=== PATIENT | female | born 2000 | race Caucasian/White ===

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

== ENCOUNTER 2020-03-30 18:16 | Emergency (ER) | payer MEDICAID, OTHER ==
[~2020-03-30] VITALS: Ht 177.8 cm; Wt 81.6 kg
[2020-03-30 21:00] VITALS: BP 123/81
[2020-03-30] MEDS ORDERED: KETOROLAC TROMETH 60MG/2ML VIAL IM ONE (21:15)
== END 2020-03-30 22:41 | disposition home or self-care (01) ==
LOC: ER 18:16
DX: S93.401A Sprain of unspecified ligament of right ankle, initial encounter (principal); S16.1XXA Strain of muscle, fascia and tendon at neck level, initial encounter; M54.5 Low back pain; J45.909 Unspecified asthma, uncomplicated; V43.62XA Car passenger injured in collision with other type car in traffic accident, initial encounter; Y93.89 Activity, other specified; Y92.488 Other paved roadways as the place of occurrence of the external cause; Y99.8 Other external cause status
CPT/HCPCS: 71250; 72125; 73590; 73600; 74176; 96372; 99285; J1885

== ENCOUNTER 2021-05-09 19:38 | Emergency (ER) | payer MEDICAID, OTHER ==
[~2021-05-09] VITALS: Ht 177.8 cm; Wt 70.3 kg
[2021-05-09] MEDS ORDERED: ASPirin 81 mg TAB PO ONE (20:30)
[2021-05-09 21:32] LABS: Basophils # (auto) 0.1 10 ^3/uL (0-0.2); Basophils % (auto) 1.1 % (0.0-2.0); Eosinophils # (auto) 0.1 10 ^3/uL (0-0.8); Eosinophils % (auto) 1.9 % (0.0-7.0); Hematocrit 41.1 % (36.0-46.0); Lymphocytes # (auto) 1.5 10 ^3/uL (0.4-5.4); Lymphocytes % (auto) 20.8 % (10.0-50.0); Mean Corpuscular Hemoglobin 29.1 pg (28.0-32.0); Mean Corpuscular Volume 85.5 fL (80.0-100.0); Monocytes # (auto) 0.4 10 ^3/uL (0-1.3); Monocytes % (auto) 6.3 % (0.0-12.0); Neutrophils # (auto) 4.9 10 ^3/uL (1.6-8.6); Neutrophils % (auto) 69.9 % (37.0-80.0); Nucleated Red Blood Cells % 0.1 %; Red Blood Cells 4.81 10^6/uL (4.0-5.20); Red Cell Distribution Width 13.6 % (11.8-14.3)
[2021-05-09 21:49] LABS: Albumin 3.6 g/dL (3.4-5.0); Anion Gap 6 (5-15); BUN/Creatinine Ratio 10.3; Blood Urea Nitrogen 7 mg/dL (7-18); Calcium 8.5 mg/dL (8.5-10.1); Carbon Dioxide 27 mmol/L (21-32); Chloride 106 mmol/L (98-107); GFR African American 139 mL/min; GFR Non-African American 115 mL/min; Glucose 96 mg/dL (74-106); Magnesium 2.3 mg/dL (1.6-2.6); Potassium 3.8 mmol/L (3.5-5.1); Sodium 139 mmol/L (136-145)
[2021-05-09 21:54] LABS: Alanine Aminotransferase 18 U/L (13-56); Alkaline Phosphatase 95 U/L (45-117); Aspartate Aminotransferase 9 U/L (15-37); Bilirubin, Total 0.3 mg/dL (0.2-1.0); Total Protein 7.5 g/dL (6.4-8.2)
[2021-05-09] MEDS ORDERED: KETOROLAC TROMETH 30 MG/ML 1ML VIAL IV ONE (22:45)
[2021-05-09 23:09] VITALS: BP 127/76
[2021-05-09] MEDS ORDERED: NAP500T PO (23:16)
== END 2021-05-09 23:37 | disposition home or self-care (01) ==
LOC: ER 19:41
DX: N64.4 Mastodynia (principal); M79.605 Pain in left leg; M25.512 Pain in left shoulder; J45.909 Unspecified asthma, uncomplicated; Z79.899 Other long term (current) drug therapy
CPT/HCPCS: 36415; 70450; 71045; 80053; 83735; 83880; 84484; 84702; 85025; 85379; 93005; 96374; 99285; J1885

== ENCOUNTER 2023-03-25 17:47 | Emergency (ER) | payer MEDICAID ==
[~2023-03-25] VITALS: Ht 177.8 cm; Wt 79.0 kg
[~2023-03-25 17:47] MED LIST changes: +NAP500T PO
[2023-03-25 18:19] VITALS: BP 118/83; PULSE 84; RESP 16; O2SAT 97
== END 2023-03-25 19:36 | disposition home or self-care (01) ==
LOC: ER 17:47
DX: M79.675 Pain in left toe(s) (principal); Z53.21 Procedure and treatment not carried out due to patient leaving prior to being seen by health care provider

== ENCOUNTER 2024-05-19 15:46 | Emergency (ER) | payer MEDICAID, OTHER ==
[~2024-05-19] VITALS: Ht 177.8 cm; Wt 84.0 kg
--- NOTE | 2024-05-19 16:30 | ED.PDOC ---
History of Present Illness HPI Comments 24 year old female presents to the ED with a chief complaint of syncope onset today. Patient states she was on break, sitting in her car, when she began seeing black spots and "blacked out" for a few seconds. She is currently experiencing headache, LLQ pain/cramping. She is 7 weeks with twins, saw OBGYN yesterday, due to vaginal spotting with cramping for a few weeks, had ultrasound done, was told she had a subchorionic hemorrhage. Patient noticed LLQ pain/cramping has worsened, vaginal spotting has improved. LMP 04/01/24. Chief Complaint: Syncope Time Seen by MD: 16:12 Primary Care Provider: JESSICA BANKS Reviewed Notes: Medications, Allergies Allergies: Coded Allergies: NO KNOWN ALLERGIES (Unverified , 07/30/12) Home Meds Active Scripts Naproxen (NAPROSYN TABLET) 500 Mg Tb, 1 TAB PO BID PRN for 10 Days, #20 TAB 1 Refill Prov:LUDMILA KEMP MD 05/09/21 Reported Medications Sulfamethoxazole-Trimethoprim (Bactrim) 1 Tab Tab 07/30/12 Albuterol Sulfate (Accuneb) 0.63MG/3 Neb 07/30/12 Information Source: Patient Mode of Arrival: Ambulatory Severity: Moderate Timing: Days Duration: Since onset Prehospital treatment: None Past Medical History PAST MEDICAL HISTORY: Asthma, Denies Surgical History: Denies all surgeries IRRADIATED FUEL HANDLER History: No Pertinent IRRADIATED FUEL HANDLER History Family History Family History: Reviewed,noncontributory to illness, Family hx of heart pio Social History Smoker: Non-Smoker Alcohol: Denies ETOH Use Drugs: Denies Drug Use Lives In: Home Constitutional: denies: chills, diaphoresis, fatigue, fever, malaise, sweats, weakness, others EENTM: denies: blurred vision, double vision, ear bleeding, ear discharge, ear drainage, ear pain, ear ringing, eye pain, eye redness, hearing loss, mouth pain, mouth swelling, nasal discharge, nose bleeding, nose congestion, nose pain, photophobia, tearing, throat pain, throat swelling, voice changes, others Respiratory: denies: cough, hemoptysis, orthopnea, SOB at rest, shortness of breath, SOB with excertion, stridor, wheezing, others Cardiovascular: denies: chest pain, dizzy spells, diaphoresis, Dyspnea on exertion, edema, irregular heart beat, left arm pain, lightheadedness, palpitations, PND, syncope, others Gastrointestinal: reports: abdominal pain (LLQ cramping); denies: abdomen distended, blood streaked bowels, constipated, diarrhea, dysphagia, difficulty swallowing, hematemesis, melena, nausea, poor appetite, poor fluid intake, rectal bleeding, rectal pain, vomiting, others Genitourinary: reports: abnormal vagina bleeding, frequency, ; denies: burning, dyspareunia, dysuria, flank pain, hematuria, incontinence, pain, vagina discharge, urgency, others Neurological: reports: dizziness, headache; denies: fainting, left sided numbness, left sided weakness, numbness, paresthesia, pre-existing deficit, right sided numbness, right sided weakness, seizure, speech problems, tingling, tremors, weakness, others Musculoskeletal: denies: back pain, gout, joint pain, joint swelling, muscle pain, muscle stiffness, neck pain, others Integumetry: denies: bruises, change in color, change in hair/nails, dryness, laceration, lesions, lumps, rash, wounds, others Allergic/Immunocompromised: denies: Difficulty Healing, Frequent Infections, Hives, Itching, others Hematologic/Lymphatic: denies: anemia, blood clots, easy bleeding, easy bruising, swollen glands, others Endocrine: denies: excessive hunger, excessive sweating, excessive thirst, excessive urination, flushing, intolerance to cold, intolerance to heat, unexplained weight gain, unexplained weight loss, others Psychiatric: denies: anxiety, bipolar disorder, depression, hopeless, panic disorder, schizophrenia, sleepless, suicidal, others All Other Systems: Reviewed and Negative Physical Exam General Appearance: No Apparent Distress, Normal HEENT: Normal ENT Inspection, Pharynx Normal, TMs Normal Neck: Full Range of Motion, Non-Tender, Normal, Normal Inspection Respiratory: Chest Non-Tender, Lungs Clear, No Accessory Muscle Use, No Respir atory Distress, Normal Breath Sounds Cardiovascular: No Edema, No JVD, No Murmur, No Gallop, Normal Peripheral Pulses, Regular Rate/Rhythm Breast Exam: Deferred Gastrointestinal: No Organomegaly, Non Tender, No Pulsatile Mass, Normal Bowel Sounds, Soft Genitalia: Deferred Pelvic: Deferred Rectal: Deferred Extremities: No calf tenderness, Normal capillary refill, Normal inspection, Normal range of motion, Non-tender, No pedal edema Musculoskeletal : Apperance: Normal Neurologic: Alert, service establishment attendant II-XII nml as Tested, No Motor Deficits, Normal Affect, Normal Mood, No Sensory Deficits Cerebellar Function: Normal Reflexes: Normal Skin: Dry, Normal Color, Warm Lymphatic: No Adenopathy Was a procedure done? Was a procedure done?: No Differential Dx Considerations may include: Threatening miscarriage Dehydration Electrolyte imbalance X-Ray, Labs, Meds, VS Vital Signs Date Time Temp Pulse Resp B/P (MAP) Pulse Ox O2 Delivery O2 Flow Rate FiO2 05/19/24 18:17 64 16 96 Room Air* 0 21 05/19/24 18:17 98.4 64 16 132/100 (111) 96 98.4 05/19/24 16:21 72 05/19/24 15:46 97.8 82 20 137/76 (96) 95 97.8 Lab Test 05/19/24 16:57 05/19/24 16:24 05/19/24 16:00 Range/Units White Blood Count 12.0 H 4.4-10.8 10^3/uL Red Blood Count 5.03 4.0-5.20 10^6/uL Hemoglobin 14.4 12.2-16.2 g/dL Hematocrit 43.1 36.0-46.0 % Mean Corpuscular Volume 85.6 80.0-100.0 fL Mean Corpuscular Hemoglobin 28.6 28.0-32.0 pg Mean Corpuscular Hemoglobin Concent 33.4 32.0-36.0 g/dL Red Cell Distribution Width 13.5 11.8-14.3 % Platelet Count 361 140-450 10^3/uL Mean Platelet Volume 8.1 6.9-10.8 fL Neutrophils (%) (Auto) 76.3 37.0-80.0 % Lymphocytes (%) (Auto) 15.5 10.0-50.0 % Monocytes (%) (Auto) 6.9 0.0-12.0 % Eosinophils (%) (Auto) 1.0 0.0-7.0 % Basophils (%) (Auto) 0.3 0.0-2.0 % Neutrophils # (Auto) 9.1 H 1.6-8.6 10 ^3/uL Lymphocytes # (Auto) 1.9 0.4-5.4 10 ^3/uL Monocytes # (Auto) 0.8 0-1.3 10 ^3/uL Eosinophils # (Auto) 0.1 0-0.8 10 ^3/uL Basophils # (Auto) 0 0-0.2 10 ^3/uL Nucleated Red Blood Cells 0.0 % Sodium Level 138 136-145 mmol/L Potassium Level 4.2 3.5-5.1 mmol/L Chloride Level 107 98-107 mmol/L Carbon Dioxide Level 24 20-31 mmol/L Anion Gap 7 5-15 Blood Urea Nitrogen 9 9-23 mg/dL Creatinine 0.75 0.550-1.02 mg/dL Glomerular Filtration Rate Calc 113 >90 mL/min BUN/Creatinine Ratio 12.0 10.0-20.0 Serum Glucose 95 74-106 mg/dL Calcium Level 9.8 8.7-10.4 mg/dL Total Bilirubin 0.3 0.2-1.0 mg/dL Aspartate Amino Transferase (AST) 12 L 13-40 U/L Alanine Aminotransferase (ALT) 17 7-40 U/L Alkaline Phosphatase 82 46-116 U/L Total Protein 7.2 5.7-8.2 g/dL Albumin 4.5 3.2-4.8 g/dL Beta HCG, Quantitative 575277.7 H 1.5-4.2 mIU/mL POC Glucose 103 70-106 mg/dl Urine Color Light-yellow Yellow Urine Clarity Turbid H Clear Urine pH 6.0 5.0-9.0 Urine Specific [place] 1.015 1.001-1.035 Urine Protein Negative Negative Urine Ketones Negative Negative Urine Blood Negative Negative /uL Urine Nitrite Negative Negative Urine Bilirubin Negative Negative Urine Urobilinogen Normal Negative mg/dL Urine Leukocyte Esterase Negative Negative /uL Urine RBC 1 0 - 4 /hpf Urine Microscopic WBC 4 0-5 /HPF Urine Squamous Epithelial Cells Few <5 /hpf Urine Bacteria Mod H None Seen /hpf Urine Glucose Normal Normal mg/dL Current Medications Medications (Trade) Dose Ordered Sig/Jacob Route Start Time Stop Time Status Last Admin Ondansetron HCl (Zofran Po) 4 mg ONCE ONCE PO 05/19/24 18:30 05/19/24 18:31 DC 05/19/24 18:23 X-Ray, Labs, Meds, VS Comment Imaging: X-rays and CT scans were reviewed and interpreted by this provider, imaging shows no fractures and no pathological disease. Pending radiology [facility] Laboratory: Labs reviewed and interpreted by this provider. No significant abnormalities noted. Patient has prior medical visits reviewed. Med reconciliation performed Vital signs reviewed Time of 1ST Reevaluation: 16:42 Reevaluation 1ST: Unchanged Patient Education/Counseling: Diagnosis, Treatment, Prognosis, Need For Follow Up (Follow up in two days for repeat lab work and possible repeat ultrasound. Advised to follow up with OBGYN next available appointment.) Family Education/Counseling: No Family Present Departure 1 Departure Time of Disposition: 18:43 Impression: Primary Impression: Episode of syncope Qualified Codes: R55 - Syncope and collapse Additional Impression: First trimester Disposition: HOME / SELF CARE / HOMELESS Condition: Fair Discharged With: Self Critical Care Note Critical Care Time?: No Stability Stability form required: No Heart Score Heart Score: Heart Score Response (Comments) Value History N/A 0 EKG N/A 0 Age N/A 0 Risk Factors N/A 0 Troponin N/A 0 Total 0 I personally scribed for BONNIE HUERTA ([email or web address]) on 05/19/24 at 16:30. Electronically submitted by Maura Goldsmith ([email or web address]). BONNIE HUERTA May 19, 2024 16:30
[2024-05-19 16:52] LABS: Urine Bacteria MOD /hpf (None Seen); Urine Blood Negative /uL (Negative); Urine Clarity Turbid (Clear); Urine Color Light-Yellow (Yellow); Urine Protein, UAD Negative (Negative); Urine Specific Gravity 1.015 (1.001-1.035); Urine Squamous Epithelial Cell FEW /hpf (<5); Urine Urobilinogen Normal (Negative); Urine WBC 4 /HPF (0-5)
[2024-05-19 17:13] LABS: Basophils # (auto) 0 10 ^3/uL (0-0.2); Basophils % (auto) 0.3 % (0.0-2.0); Eosinophils # (auto) 0.1 10 ^3/uL (0-0.8); Hematocrit 43.1 % (36.0-46.0); Hemoglobin 14.4 g/dL (12.2-16.2); Lymphocytes # (auto) 1.9 10 ^3/uL (0.4-5.4); Lymphocytes % (auto) 15.5 % (10.0-50.0); Mean Corpuscular Hemoglobin 28.6 pg (28.0-32.0); Mean Corpuscular Hgb Conc. 33.4 g/dL (32.0-36.0); Mean Corpuscular Volume 85.6 fL (80.0-100.0); Monocytes # (auto) 0.8 10 ^3/uL (0-1.3); Monocytes % (auto) 6.9 % (0.0-12.0); Neutrophils # (auto) 9.1 10 ^3/uL (1.6-8.6); Neutrophils % (auto) 76.3 % (37.0-80.0); Platelet Count (auto) 361 10^3/uL (140-450); Red Blood Cells 5.03 10^6/uL (4.0-5.20); Red Cell Distribution Width 13.5 % (11.8-14.3)
[2024-05-19 17:25] LABS: Alanine Aminotransferase 17 U/L (7-40); Albumin 4.5 g/dL (3.2-4.8); Alkaline Phosphatase 82 U/L (46-116); Anion Gap 7 (5-15); Blood Urea Nitrogen 9 mg/dL (9-23); Calcium 9.8 mg/dL (8.7-10.4); Carbon Dioxide 24 mmol/L (20-31); Chloride 107 mmol/L (98-107); Glucose 95 mg/dL (74-106); Potassium 4.2 mmol/L (3.5-5.1); Sodium 138 mmol/L (136-145); Total Protein 7.2 g/dL (5.7-8.2)
[2024-05-19 17:28] LABS: Aspartate Aminotransferase 12 U/L (13-40); Bilirubin, Total 0.3 mg/dL (0.2-1.0)
[2024-05-19 18:17] VITALS: BP 132/100; PULSE 64; RESP 16; TEMP 98.4; O2SAT 96
[2024-05-19] MEDS: ONDANSETRON ODT 4 MG TAB PO ONE (18:23)
--- NOTE | 2024-05-20 10:07 | ECG ---
[facility] Test Date: 2024-05-19 Test Time: 16:21:35 Pat Name: GIOVANNI THORNTON Department: ER Room: Gender: F Range Operator: ROSEMARIE : 2000 Requested By: BONNIE HUERTA Order Number: [id number] Reading MD: Billy Nash Measurements Intervals [place] Rate: 72 P: 38 OK: 118 QRS: 52 QRSD: 98 T: 19 QT: 402 QTc: 440 Interpretive Statements Sinus rhythm Borderline short OK interval Electronically Signed On 05-20-2024 18:49:21 PDT by Billy Nash Please click the below link to view image of tracing.
== END 2024-05-19 19:34 | disposition home or self-care (01) ==
LOC: ER 15:46
DX: O26.891 Other specified pregnancy related conditions, first trimester (principal); R55 Syncope and collapse; R10.2 Pelvic and perineal pain; R51.9 Headache, unspecified; R10.32 Left lower quadrant pain; O99.511 Diseases of the respiratory system complicating pregnancy, first trimester; J45.909 Unspecified asthma, uncomplicated; Z79.899 Other long term (current) drug therapy
CPT/HCPCS: 36415; 80053; 81001; 82947; 84702; 85025; 93005; 99284; Q0162; 82962

== ENCOUNTER 2024-08-17 19:05 | Emergency (ER) | payer OTHER ==
[~2024-08-17] VITALS: Ht 177.8 cm; Wt 84.1 kg
[2024-08-17 20:27] LABS: Urine Protein, UAD Negative (Negative)
--- NOTE | 2024-08-17 20:45 | DVH ---
LIMITED OB ULTRASOUND > 14 WKS: HISTORY: pain and bleeding TECHNIQUE: Multiple real-time grayscale images of the gravid uterus with duplex Doppler color flow an d M-mode spectral analysis. TRANSDUCER: C1-6 COMPARISON: None FINDINGS: TWIN A: IUP single live fetus at 20 weeks, 0 day based on composite averages of the BPD, head circumference, abdominal circumference and femur length Estimated weight 333 grams heart rate 155 beats per minute CORWIN is subjectively normal. Cervix is closed Vertex Presentation Unremarkable placenta without previa or abruption. TWIN B: IUP single live fetus at 19 weeks, 1 day based on composite averages of the BPD, head circumference, abdominal circumference and femur length Estimated weight 274 grams heart rate 132 beats per minute CORWIN is subjectively normal. Cervix is closed Breech Presentation Unremarkable placenta without previa or abruption. IMPRESSION: Twin gestation is seen with no abnormal findings identified. Details above. No placenta previa or abruption.
--- NOTE | 2024-08-17 21:17 | ED.PDOC ---
History of Present Illness HPI Comments This is a 24-year-old female who comes in with chief complaint of vaginal bleeding today. The patient states that she is also having some left lower quadrant pain for the past two days. Currently she is 20 weeks with twin gestation. She states that her pain as a 6/10. The patient has no other complaints at this time. She was able to ambulate into the emergency department's without any difficulty. Chief Complaint: Vaginal Bleed Time Seen by MD: 19:08 Primary Care Provider: JESSICA BANKS Reviewed Notes: Nurses Notes, Medications, Allergies (No allergies to medications) Allergies: Coded Allergies: NO KNOWN ALLERGIES (Unverified , 07/30/12) Home Meds Active Scripts Naproxen (NAPROSYN TABLET) 500 Mg Tb, 1 TAB PO BID PRN for 10 Days, #20 TAB 1 Refill Prov:LUDMILA KEMP MD 05/09/21 Reported Medications Sulfamethoxazole-Trimethoprim (Bactrim) 1 Tab Tab 07/30/12 Albuterol Sulfate (Accuneb) 0.63MG/3 Neb 07/30/12 Information Source: Patient Mode of Arrival: Ambulatory Severity: Moderate Timing: Days Duration: Since onset Prehospital treatment: None Location: Left lower quadrant pain with cramping Associated signs and symptoms Vaginal bleeding today Past Medical History PAST MEDICAL HISTORY: Asthma, Denies Surgical History: Denies all surgeries GROUP CHIEF OPERATOR History: No Pertinent GROUP CHIEF OPERATOR History Family History Family History: Family hx of DM, Family hx of heart pio Social History Smoker: Non-Smoker Alcohol: Denies ETOH Use Drugs: Denies Drug Use Lives In: Home Constitutional: denies: chills, diaphoresis, fatigue, fever, malaise, sweats, weakness, others EENTM: denies: blurred vision, double vision, ear bleeding, ear discharge, ear drainage, ear pain, ear ringing, eye pain, eye redness, hearing loss, mouth pain, mouth swelling, nasal discharge, nose bleeding, nose congestion, nose pain, photophobia, tearing, throat pain, throat swelling, voice changes, others Respiratory: denies: cough, hemoptysis, orthopnea, SOB at rest, shortness of breath, SOB with excertion, stridor, wheezing, others Cardiovascular: denies: chest pain, dizzy spells, diaphoresis, Dyspnea on exertion, edema, irregular heart beat, left arm pain, lightheadedness, palpitations, PND, syncope, others Gastrointestinal: denies: abdomen distended, abdominal pain, blood streaked bowels, constipated, diarrhea, dysphagia, difficulty swallowing, hematemesis, melena, nausea, poor appetite, poor fluid intake, rectal bleeding, rectal pain, vomiting, others Genitourinary: reports: abnormal vagina bleeding, pain, ; denies: burning, dyspareunia, dysuria, flank pain, frequency, hematuria, incontinence, vagina discharge, urgency, others Neurological: denies: dizziness, fainting, headache, left sided numbness, left sided weakness, numbness, paresthesia, pre-existing deficit, right sided numbness, right sided weakness, seizure, speech problems, tingling, tremors, w eakness, others Musculoskeletal: denies: back pain, gout, joint pain, joint swelling, muscle pain, muscle stiffness, neck pain, others Integumetry: denies: bruises, change in color, change in hair/nails, dryness, laceration, lesions, lumps, rash, wounds, others Allergic/Immunocompromised: denies: Difficulty Healing, Frequent Infections, Hives, Itching, others Hematologic/Lymphatic: denies: anemia, blood clots, easy bleeding, easy bruising, swollen glands, others Endocrine: denies: excessive hunger, excessive sweating, excessive thirst, excessive urination, flushing, intolerance to cold, intolerance to heat, unexplained weight gain, unexplained weight loss, others Psychiatric: denies: anxiety, bipolar disorder, depression, hopeless, panic disorder, schizophrenia, sleepless, suicidal, others Physical Exam General Appearance: Mild Distress HEENT: Normal ENT Inspection, Pharynx Normal, TMs Normal Neck: Full Range of Motion, Non-Tender, Normal, Normal Inspection Respiratory: Chest Non-Tender, Lungs Clear, No Accessory Muscle Use, No Resp iratory Distress, Normal Breath Sounds Cardiovascular: No Edema, No JVD, No Murmur, No Gallop, Normal Peripheral Pulses, Regular Rate/Rhythm Breast Exam: Deferred Gastrointestinal: LLQ, No Organomegaly, No Pulsatile Mass, Normal Bowel Sounds, Soft, Tenderness Genitalia: Deferred Pelvic: Deferred Rectal: Deferred Extremities: No calf tenderness, Normal capillary refill, Normal inspection, Normal range of motion, Non-tender, No pedal edema Musculoskeletal : Apperance: Normal Neurologic: Alert, folder inspector II-XII nml as Tested, No Motor Deficits, Normal Affect, Normal Mood, No Sensory Deficits Cerebellar Function: Normal Reflexes: Normal Skin: Dry, Normal Color, Warm Lymphatic: No Adenopathy Was a procedure done? Was a procedure done?: No Differential Dx Considerations may include: Threatened , abdominal pain in , UTI, ectopic X-Ray, Labs, Meds, VS Vital Signs Date Time Temp Pulse Resp B/P (MAP) Pulse Ox O2 Delivery O2 Flow Rate FiO2 08/17/24 19:55 97.9 76 19 123/69 (87) 100 97.9 Lab Test 08/17/24 20:00 Range/Units Urine Color Colorless Yellow Urine Clarity Clear Clear Urine pH 6.0 5.0-9.0 Urine Specific [place] 1.001 1.001-1.035 Urine Protein Negative Negative Urine Ketones Negative Negative Urine Blood Negative Negative /uL Urine Nitrite Negative Negative Urine Bilirubin Negative Negative Urine Urobilinogen Normal Negative mg/dL Urine Leukocyte Esterase Negative Negative /uL Urine RBC None seen 0 - 4 /hpf Urine Microscopic WBC 0-5 /HPF Urine Squamous Epithelial Cells Few <5 /hpf Urine Bacteria None seen None Seen /hpf Urine Glucose Normal Normal mg/dL The urine test is negative for any infection The ultrasound of the pelvis shows: IMPRESSION: Twin gestation is seen with no abnormal findings identified. Details above. No placenta previa or abruption. The patient is being discharged at this time The patient will return to the emergency department's condition worsens Images Reviewed?: Images reviewed and evaluated by me Time of 1ST Reevaluation: 21:14 Reevaluation 1ST: Unchanged Patient Education/Counseling: Diagnosis, Treatment, Prognosis, Need For Follow Up Family Education/Counseling: Diagnosis, Treatment, Prognosis, Need For Follow Up SEPSIS Sepsis Screen Date sepsis recognized/suspect: Aug 17, 2024 Time Sepsis recognized/suspect: 1934 Recent Procedure: No On Antibiotic Therapy: No Respiratory Rate >20: No Heart Rate >90: No Temp<36 C (96.8 F) or >38.3 C: No SBP <90 or MAP <65 mmHG: No New Acute Mental Status Change: No Is the patient on CPAP, BIPAP,: No Physician Orders Ob Ultrasound Comp Gtr 14 Wks (08/17/24 19:17) Vital Signs Date Time Temp Pulse Resp B/P (MAP) Pulse Ox O2 Delivery O2 Flow Rate FiO2 08/17/24 19:55 97.9 76 19 123/69 (87) 100 97.9 Departure 1 Departure Time of Disposition: 21:15 Impression: Primary Impression: Abdominal pain during Qualified Codes: O26.899 - Other specified related conditions, uns pecified trimester; R10.9 - Unspecified abdominal pain Additional Impression: Twin gestation in second trimester Qualified Codes: O30.002 - Twin , unspecified number of placenta and unspecified number of amniotic sacs, second trimester Disposition: 01 HOME / SELF CARE / HOMELESS Condition: Fair Discharged With: Self Critical Care Note Critical Care Time?: No Stability Stability form required: No Heart Score Heart Score: Heart Score Response (Comments) Value History N/A 0 EKG N/A 0 Age N/A 0 Risk Factors N/A 0 Troponin N/A 0 Total 0 IZZY HALL MD Aug 17, 2024 21:17
[2024-08-17 22:30] VITALS: BP 123/69; PULSE 76; RESP 19; TEMP 97.9; O2SAT 100
== END 2024-08-17 22:45 | disposition home or self-care (01) ==
LOC: ER 19:05
DX: O26.892 Other specified pregnancy related conditions, second trimester (principal); R10.32 Left lower quadrant pain; O46.92 Antepartum hemorrhage, unspecified, second trimester; O99.512 Diseases of the respiratory system complicating pregnancy, second trimester; J45.909 Unspecified asthma, uncomplicated; Z79.899 Other long term (current) drug therapy; Z3A.20 20 weeks gestation of pregnancy
CPT/HCPCS: 76805; 81001

== ENCOUNTER 2024-11-05 05:06 | Observation (INO) | payer MEDICAID ==
--- NOTE | 2024-11-05 15:11 | DVHDS2 ---
Physician Discharge Progress N Final Diagnosis: Twin gestation Operations or Procedures: Operations or Procedures NST Condition on Discharge: Stable Disposition: Home Discharge Instructions: Diet: Regular Activity: No Restrictions, As Tolerated Follow Up/Referral: as scheduled Medications: NA Follow Up Care: Discharge Statement: "Patient was advised to return to the ER or call 911 if any headaches, dizziness, shortness of breath, chest pain, abdominal pain, bleeding, fevers, or worsening of medical condition. Patient was counseled about treatment plan, medications, possible side effects, patientverbalized understanding. All questions were answered to the best of my ability. This discharge took greater then 30 minutes in planning, reviewing docum entation, counseling the patient, and discussing with other team members." Visit Coding OBGYN Date of Service: Nov 05, 2024 Billing Provider: YOHAN CONRAD DO IMMIGRATION LAWYER Common Visit Codes: 74045-ZAI/OBS SAME DATE (MOD) IMMIGRATION LAWYER Procedure Codes: 56951-64- NON-STRESS TEST YOHAN CONRAD DO Nov 05, 2024 15:11
== END 2024-11-05 12:05 | disposition home or self-care (01) ==
LOC: LDRP 10:10
PROVIDERS: ADMIT Obstetrics & Gynecology; ATTEND Obstetrics & Gynecology
DX: O30.003 Twin pregnancy, unspecified number of placenta and unspecified number of amniotic sacs, third trimester (principal); Z3A.31 31 weeks gestation of pregnancy; Z98.890 Other specified postprocedural states
CPT/HCPCS: 59025; 81002; G0378

== ENCOUNTER 2024-11-07 15:00 | Observation (INO) | payer MEDICAID ==
--- NOTE | 2024-11-07 15:53 | DVH ---
EXAM: US OBSTERICAL LIMITED HISTORY: Twins Decrease Movement COMPARISON: US OB ULTRASOUND COMP GTR 14 WKS on DOS: 08/17/24 TECHNIQUE: Transabdominal imaging was utilized. Grayscale and color doppler evaluation. Images were s tored in the patient's permanent medical record. FINDINGS: Cephalic presentation. Anterior placenta. Heart rate measures 142 beats per minute. IMPRESSION: 1. Adequate motion
[2024-11-07] MEDS ORDERED: PREN1TAB71 OR (17:04)
--- NOTE | 2024-11-08 06:22 | DVHDS2 ---
Discharge Summary Date of Admission Nov 07, 2024 at 15:00 Date of Discharge: Nov 07, 2024 Admitting Diagnosis 31+ weeks decreased movement Wounds: None Labs/Diagnostic Data: None Brief Hx & Hospital Course: Patient underwent NST BPP both reassuring Consults/Reason for consult None Operations or Procedures None Condition at Discharge: Good Final Diagnosis/Problems List 31+ weeks reassuring heart tones NST BPP Discharge Disposition: Home Discharge Instruct/Medications Diet: Regular Activity: Light activity (Pelvic rest kick counts labor precautions) Follow Up/Referral: As scheduled primary Ob Medications: Resume home Scheduled PRN Naproxen (Naprosyn Tablet), 1 TAB PO BID PRN Miscellaneous Medications Albuterol Sulfate (Accuneb), (Reported) Vit W/ Ferrous Fumara (Pnv Plus Multivi), 1 OR, (Reported) Sulfamethoxazole-Trimethoprim (Bactrim), (Reported) Discharge Statement: "Patient was advised to return to the ER or call 911 if any headaches, dizziness, shortness of breath, chest pain, abdominal pain, bleeding, fevers, or worsening of medical condition. Patient was counseled about treatment plan, medications, possible side effects, patientverbalized understanding. All questions were answered to the best of my ability. This discharge took greater then 30 minutes in planning, reviewing documentation, counseling the patient, and discussing with other team members." ASSESSMENT ASSESSMENT Assessment Visit Coding OBGYN Date of Service: Nov 07, 2024 Billing Provider: FABRICIO ANDERSON DO DIABETIC EDUCATOR Common Visit Codes: 47064-XGR/OBS SAME DATE (LOW), 47616-AJT/OBS SAME DATE (MOD), 48614-ALH/OBS SAME DATE (HIGH) DIABETIC EDUCATOR Procedure Codes: 68985-07- NON-STRESS TEST FABRICIO ANDERSON DO Nov 08, 2024 06:22
== END 2024-11-07 17:20 | disposition home or self-care (01) ==
LOC: UNDOADMOB 15:00 → LDRP 15:00 → UNDODISOB 17:20
PROVIDERS: ADMIT Obstetrics & Gynecology; ATTEND Obstetrics & Gynecology
DX: O36.8130 Decreased fetal movements, third trimester, not applicable or unspecified (principal); Z3A.31 31 weeks gestation of pregnancy; Z98.890 Other specified postprocedural states
CPT/HCPCS: 59025; 76815; 81002; G0378

== ENCOUNTER 2024-11-10 03:57 | Observation (INO) | payer MEDICAID ==
[~2024-11-10 03:57] MED LIST changes: +PREN1TAB71 OR
--- NOTE | 2024-11-14 15:08 | DVH ---
BIOPHYSICAL PROFILE HISTORY: TWINS Comparison Study: US OBSTERICAL LIMITED on DOS: 11/07/24, US OB ULTRASOUND COMP GTR 14 WKS on DOS: 08/17 TECHNIQUE: Multiple real-time grayscale sonographic images through the gravid uterus of the fetus wi th duplex Doppler color flow and M-mode spectral analysis FINDINGS: BIOPHYSICAL PROFILE: TWIN A: breathing score: 2 movement score: 2 tone score: 2 Quantitative CORWIN score: 2 (deepest pocket measures 5.5 cm) Total score: 8 Single live fetus in cephalic presentation. heart rate 146 beats per minute. Anterior placenta without previa or abruption TWIN B: breathing score: 2 movement score: 2 tone score: 2 Quantitative CORWIN score: 2 (deepest pocket measures 4.4 cm) Total score: 8 Single live fetus in cephalic presentation. heart rate 146 beats per minute. Anterior placenta without previa or abruption IMPRESSION: Biophysical profile score: 8/8 for both twin a and twin B
--- NOTE | 2024-11-18 13:35 | DVHDS2 ---
Physician Discharge Progress N Final Diagnosis: twins 32 wks Operations or Procedures: Operations or Procedures nst reactive reviwed,sono Condition on Discharge: Good Disposition: Home Discharge Instructions: Diet: Regular Activity: No Restrictions, As Tolerated Medications: na Follow Up Care: Specialist: 1w Discharge Statement: "Patient was advised to return to the ER or call 911 if any headaches, dizziness, shortness of breath, chest pain, abdominal pain, bleeding, fevers, or worsening of medical condition. Patient was counseled about treatment plan, medications, possible side effects, patientverbalized understanding. All questions were answered to the best of my ability. This discharge took greater then 30 minutes in planning, reviewing documen tation, counseling the patient, and discussing with other team members." Visit Coding OBGYN Date of Service: Nov 18, 2024 Billing Provider: RAH IGLESIAS DO POT HOLDER BINDER Common Visit Codes: 73736-GSTROBW OBS CARE (HIGH) POT HOLDER BINDER Procedure Codes: 37642-47- NON-STRESS TEST RAH IGLESIAS DO Nov 18, 2024 13:35
== END 2024-11-14 13:36 | disposition home or self-care (01) ==
LOC: LDRP 11-14 12:06
PROVIDERS: ADMIT Obstetrics & Gynecology; ATTEND Obstetrics & Gynecology
DX: O30.003 Twin pregnancy, unspecified number of placenta and unspecified number of amniotic sacs, third trimester (principal); Z3A.32 32 weeks gestation of pregnancy; Z79.899 Other long term (current) drug therapy; Z98.890 Other specified postprocedural states
CPT/HCPCS: 59025; 76819; 81002; G0378

== ENCOUNTER 2024-11-21 07:27 | Observation (INO) | payer MEDICAID ==
[~2024-11-21] VITALS: Ht 177.8 cm; Wt 89.4 kg
--- NOTE | 2024-11-21 11:59 | DVH ---
CLINICAL HISTORY: Twin . COMPARISON: US BIOPHYSICAL PROFILE on DOS: 11/14/24, US OBSTERICAL LIMITED on DOS: 11/07/24, US OB ULTR ASOUND COMP GTR 14 WKS on DOS: 08/17/24 TECHNIQUE: biophysical profile was performed. Transabdominal sonographic images of the fetus we re obtained. FINDINGS: Twin A: The fetus is in cephalic position. heart rate measures 141 BPM. Amniotic fluid MVP measures 4.3 cm. The placenta is anterior in position without visualized evidence of previa or abruption. BPP profile is an overall score of 8/8, with 2/2 points for breathing, with at least one episode of breathing over a 30 second duration during a 30 minute observation, 2/2 points for m ovements, with 3 or more discrete body or limb movements, 2/2 points for tone, with one or more episodes of extremity extension with return to flexion, or opening and closing of hand, and 2/ 2 points for amniotic fluid, with at least 1 pocket of amniotic fluid that measures 2 cm in 2 perpend icular planes. Twin B: The fetus is in cephalic position. heart rate measures 138 BPM. Amniotic fluid MVP measures 5.8 cm. The placenta is anterior in position without visualized evidence of previa or abruption. BPP profile is an overall score of 8/8, with 2/2 points for breathing, with at least one episode of breathing over a 30 second duration during a 30 minute observation, 2/2 points for m ovements, with 3 or more discrete body or limb movements, 2/2 points for tone, with one or more episodes of extremity extension with return to flexion, or opening and closing of hand, and 2/ 2 points for amniotic fluid, with at least 1 pocket of amniotic fluid that measures 2 cm in 2 perpend icular planes. IMPRESSION: BPP score of 8/8 for twin a and twin B.
[2024-11-21 13:25] LABS: Hemoglobin 10.3 g/dL (12.2-16.2); Mean Corpuscular Volume 79.2 fL (80.0-100.0); Nucleated Red Blood Cells % 0.0 %
[2024-11-21 13:27] LABS: Hematocrit 31.1 % (36.0-46.0); Mean Corpuscular Hemoglobin 26.2 pg (28.0-32.0)
[2024-11-21 13:27] LABS: Urine Protein, UAD Negative (Negative)
[2024-11-21 13:39] LABS: INR 0.98 (0.9-1.15); Partial Thromboplastin Time 28.1 SEC (24.5-34.5); Prothrombin Time 10.4 sec (9.3-11.8)
[2024-11-21 13:40] LABS: Protein, Urine 11.6 mg/dL (1-14)
[2024-11-21 13:43] LABS: Anion Gap 12 (5-15); Bilirubin, Total 0.4 mg/dL (0.2-1.0); Carbon Dioxide 22 mmol/L (20-31); Sodium 142 mmol/L (136-145); Total Protein 5.8 g/dL (5.7-8.2); Uric Acid 4.4 mg/dL (3.1-7.8)
[2024-11-21 13:44] LABS: Alanine Aminotransferase < 9 U/L (7-40); Albumin 3.2 g/dL (3.2-4.8); Alkaline Phosphatase 180 U/L (46-116); BUN/Creatinine Ratio 9.4 (10.0-20.0); Blood Urea Nitrogen < 5 mg/dL (9-23); Calcium 8.3 mg/dL (8.7-10.4); Chloride 108 mmol/L (98-107); Glucose 70 mg/dL (74-106); Potassium 3.0 mmol/L (3.5-5.1)
[2024-11-21] MEDS: BETAMETHASONE ACET (30mg/5ml) 5ml Vial 6mg/ml IM ONE (14:46)
--- NOTE | 2024-11-22 07:55 | DVHDS2 ---
Physician Discharge Progress N Final Diagnosis: twins [id number] Operations or Procedures: Operations or Procedures nst reactive reviwed,sono,labs Condition on Discharge: Good Disposition: Home Discharge Instructions: Diet: Regular Activity: Light activity Medications: procardia Follow Up Care: Specialist: tonya for [facility] Discharge Statement: "Patient was advised to return to the ER or call 911 if any headaches, dizziness, shortness of breath, chest pain, abdominal pain, bleeding, fevers, or worsening of medical condition. Patient was counseled about treatment plan, medications, possible side effects, patientverbalized understanding. All questions were answered to the best of my ability. This discharge took greater then 30 minutes in planning, reviewing documentation, counseling the patient, and discussing with other team members." Visit Coding OBGYN Date of Service: Nov 21, 2024 Billing Provider: RAH IGLESIAS DO PIECE WORK CHECKER Common Visit Codes: 18634-[id number] OBS CARE (HIGH) PIECE WORK CHECKER Procedure Codes: 78500-97- NON-STRESS TEST RAH IGLESIAS DO Nov 22, 2024 07:55
== END 2024-11-21 14:58 | disposition home or self-care (01) ==
LOC: UNDOADMOB 11:00 → LDRP 11:00
PROVIDERS: ADMIT Obstetrics & Gynecology; ATTEND Obstetrics & Gynecology
DX: O13.3 Gestational [pregnancy-induced] hypertension without significant proteinuria, third trimester (principal); O30.003 Twin pregnancy, unspecified number of placenta and unspecified number of amniotic sacs, third trimester; Z3A.33 33 weeks gestation of pregnancy; Z98.890 Other specified postprocedural states
CPT/HCPCS: 36415; 59025; 76819; 80053; 81001; 81002; 82570; 84156; 84550; 85025; 85610; 85730; 94760; 96372; G0378; J0702

== ENCOUNTER 2024-11-22 07:30 | Observation (INO) | payer MEDICAID ==
[2024-11-22] MEDS: BETAMETHASONE ACET (30mg/5ml) 5ml Vial 6mg/ml IM ONE (14:25)
--- NOTE | 2024-11-22 15:13 | DVHDS2 ---
Physician Discharge Progress N Final Diagnosis: second betamethasone dose Operations or Procedures: Operations or Procedures 24yo IUP@33.4wks with twins, no complaints Second dose of betamethasone given twin A: +FHTs per RN twin B: +FHTs per RN Pt sent home with 24 hour urine collection supplies and instructions f/u on 11/24/24 with [address] Lewis consulted, agrees with POC. Condition on Discharge: Stable Disposition: Home Discharge Instructions: Diet: Regular Activity: Activity comment: pelvic rest Medications: see med list Follow Up Care: Specialist: f/u on 11/24/24 with 24 hour urine collection Discharge Statement: "Patient was advised to return to the ER or call 911 if any headaches, dizziness, shortness of breath, chest pain, abdominal pain, bleeding, fevers, or worsening of medical condition. Patient was counseled about treatment plan, medications, possible side effects, patientverbalized understanding. All questions were answered to the best of my ability. This discharge took greater then 30 minutes in planning, reviewing documentation, counseling the patient, and discussing with other team members." Visit Coding OBGYN Date of Service: Nov 22, 2024 Billing Provider: DEBORA MAN CNM CORRIDOR REDEVELOPMENT MANAGER Common Visit Codes: [id number] OBS CARE (HIGH) DEBORA MAN CNM Nov 22, 2024 15:13
== END 2024-11-22 15:30 | disposition home or self-care (01) ==
LOC: LDRP 14:05 → UNDOADMOB 14:05 → LDRP 14:12
PROVIDERS: ADMIT Obstetrics & Gynecology; ATTEND Obstetrics & Gynecology
DX: O30.003 Twin pregnancy, unspecified number of placenta and unspecified number of amniotic sacs, third trimester (principal); Z3A.33 33 weeks gestation of pregnancy; Z98.890 Other specified postprocedural states
CPT/HCPCS: 59025; 81002; 94760; 96372; G0378; J0702

== ENCOUNTER 2024-12-07 05:03 | Observation (INO) | payer MEDICAID ==
[2024-12-07 12:33] LABS: Hemoglobin 9.4 g/dL (12.2-16.2); Mean Corpuscular Hemoglobin 25.2 pg (28.0-32.0)
[2024-12-07 12:35] LABS: Hematocrit 28.9 % (36.0-46.0); Mean Corpuscular Volume 77.5 fL (80.0-100.0); Nucleated Red Blood Cells % 0.1 %
[2024-12-07 12:37] LABS: Urine Protein, UAD TRACE (Negative)
[2024-12-07 12:40] LABS: Protein, Urine 33.5 mg/dL (1-14)
[2024-12-07 12:45] LABS: Alanine Aminotransferase 10 U/L (7-40); Albumin 3.5 g/dL (3.2-4.8); Alkaline Phosphatase 226 U/L (46-116); BUN/Creatinine Ratio 8.8 (10.0-20.0); Bilirubin, Total 0.5 mg/dL (0.2-1.0); Blood Urea Nitrogen < 5 mg/dL (9-23); Calcium 8.8 mg/dL (8.7-10.4); Carbon Dioxide 19 mmol/L (20-31); Glucose 100 mg/dL (74-106); INR 1.0 (0.9-1.15); Partial Thromboplastin Time 27.6 SEC (24.5-34.5); Prothrombin Time 10.6 sec (9.3-11.8); Total Protein 6.3 g/dL (5.7-8.2); Uric Acid 4.5 mg/dL (3.1-7.8)
[2024-12-07 12:47] LABS: Chloride 107 mmol/L (98-107); Potassium 4.5 mmol/L (3.5-5.1)
[2024-12-07 12:50] LABS: Anion Gap 10 (5-15)
[2024-12-07 12:51] LABS: Sodium 136 mmol/L (136-145)
--- NOTE | 2024-12-07 13:09 | DVHDS2 ---
Physician Discharge Progress N Final Diagnosis: twins ,gest htn,36wks Operations or Procedures: Operations or Procedures nst reactive reviwed,sono Condition on Discharge: Good Disposition: Home Discharge Instructions: Diet: Regular Activity: No Restrictions, As Tolerated Follow Up/Referral: pt wants to del at [facility] doesnt want pcs that is offered to her pt understands risk and compl of pih wants to fu at [facility] on sat Medications: na Follow Up Care: Specialist: 1d Discharge Statement: "Patient was advised to return to the ER or call 911 if any headaches, dizziness, shortness of breath, chest pain, abdominal pain, bleeding, fevers, or worsening of medical condition. Patient was counseled about treatment plan, medications, possible side effects, patientverbalized understanding. All questions were answered to the best of my ability. This discharge took greater then 30 minutes in planning, reviewing documentation, counseling the patient, and discussing with other team members." Visit Coding OBGYN Date of Service: Dec 07, 2024 Billing Provider: RAH IGLESIAS DO VALVE TESTER Common Visit Codes: [id number] OBS CARE (HIGH) VALVE TESTER Procedure Codes: 68796-14- NON-STRESS TEST RAH IGLESIAS DO Dec 07, 2024 13:09
--- NOTE | 2024-12-07 13:18 | DVH ---
BIOPHYSICAL PROFILE HISTORY: PIH/TWINS TECHNIQUE: Multiple transabdominal real-time grayscale sonographic images through the gravid uterus o f the fetus with duplex doppler color flow and M-mode spectral analysis FINDINGS: BIOPHYSICAL PROFILE: Baby A breathing score: 2 movement score: 2 tone score: 2 Quantitative CORWIN score: 2 (MVP: 3.4 cm.) Total score: [ ]8/8 Single live fetus in cephalic presentation. heart rate 138 beats per minute. Grade 2 placenta without previa or abruption Biophysical profile score 8/8 corresponding to an NEHA of 01/06/25 BIOPHYSICAL PROFILE: Baby B breathing score: 2 movement score: 2 tone score: 2 Quantitative CORWIN score: 2 (MVP: 4.1 cm.) Total score: 8/8 Single live fetus in cephalic presentation. heart rate 137 beats per minute. Grade 2 placenta without previa or abruption Biophysical profile score 8/8 corresponding to an NEHA of 01/06/25 IMPRESSION: Biophysical profile score: Baby A 8/8, Baby B 8/8
[2024-12-07] MEDS ORDERED: LABE200T33 PO (13:42)
== END 2024-12-07 13:58 | disposition home or self-care (01) ==
LOC: LDRP 11:14 → UNDOADMOB 11:14 → LDRP 11:35
PROVIDERS: ADMIT Obstetrics & Gynecology; ATTEND Obstetrics & Gynecology
DX: O13.3 Gestational [pregnancy-induced] hypertension without significant proteinuria, third trimester (principal); O30.003 Twin pregnancy, unspecified number of placenta and unspecified number of amniotic sacs, third trimester
CPT/HCPCS: 36415; 59025; 76819; 80053; 81001; 81002; 82570; 84156; 84550; 85025; 85610; 85730; 94760; G0378